=== PATIENT | female | born 1990 | race Caucasian/White ===

== ENCOUNTER 2020-10-09 07:36 | Inpatient (IN) ==
[2020-10-09] MEDS ORDERED: DINOPROSTONE 10 MG INSERT PV ONE (08:33)
[2020-10-09] MEDS ORDERED: OXYTOCIN 30 UNITS/500 ML BAG IV PRN (08:33)
--- NOTE | 2020-10-09 08:39 | History & Physical Report ---
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 then Allergies Allergy/AdvReac Type Severity Reaction Status Date / Time codeine AdvReac Unknown Verified 10/09/20 08:22 Home Medications Medication Instructions Recorded Confirmed Type prenat.vits,carlin,[id number] 1 tab PO DAILY 10/09/20 10/09/20 History [ Vitamin] Patient History Social History Smoking Status: Current every day smoker Do You Dip or Chew Tobacco: No; Tobacco Cessation Education Requested by Patient: No Hx Alcohol Use: No Hx Substance Use: No Preferred Language: Luxembourgish General Operations Manager Required: No Beliefs That Will Affect Care: None marital status: Single Current Living Situation: Spouse Other Information That Helps Us Care for You: No Feels Safe at Home: Yes Safety Concerns: Feels Safe At This Time Assistive Devices: None 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 No h/o STD's Review of Systems All systems reviewed & are unremarkable except as noted in HPI & below Physical Exam Constitutional: WD/WN, vitals as above well developed Gastrointestinal (Abdomen): normal bowel sounds, soft, nontender, no hepatosplenomegaly (gravid) Genitourinary: normal external appearance OB Exam Abdomen: + vertex Manual OB Exam: + cervical dilation 1 cm, + cervical effacement 40% and + station -2 OB Exam Monitor Tracing: + external uterine monitor used and + category I Results & Data ([facility]) Vital Signs (Past 12 Hours) Vital Signs Temp Pulse Resp BP 10/09/20 07:52 36.7 C 75 20 116/71 10/09/20 07:48 75 116/71
[2020-10-09] MEDS ORDERED: PENICILLIN G POTASSIUM 6 MU in DEXTROSE 5% 250 ML IV ONE (09:00)
[2020-10-09 09:06] LABS: Hematocrit (blood only) 32.8 % (37-47); Hemoglobin 10.9 g/dL (12.0-16.0); Mean Corpuscular Hemoglobin 28.7 pg (25-34); Mean Corpuscular Hgb Conc 33.2 g/dL (32-36); Mean Corpuscular Volume 86.3 fL (80-100); Mean Platelet Volume 10.6 fL (7.4-10.4); Platelet Count 149 K/uL (130-400); RDW Coefficient of Variation 14.3 % (11.5-14.5); RDW Standard Deviation 44.5 fL (36.4-46.3); White Blood Count 7.32 K/uL (4.8-10.8)
[2020-10-09] MEDS ORDERED: BUTORPHANOL TARTRATE 1 MG/ML VIAL IV PRN (09:17)
[2020-10-09] MEDS: LACTATED RINGER'S 1,000 ML IV PRN ×2 (17:50→19:57)
--- NOTE | 2020-10-09 17:58 | Obstetrical Progress Note ---
Date of Service October 09, 2020 Assessment & Plan Admission and Anticipated Discharge Date Admission Date: October 09, 2020 Subjective Patient has been feeling ctxs more often and more painful for the last 2 hours Desires pain meds VE; 1-2 cm/ 70%/ -2, posterior, cervidil is in place FHR 115-120 baseline, categ I [place] ctxs q 2-3 min Plan to monitor closely and Stadol for pain Start IV PCN for GBS Results & Data ([facility]) Vital Signs (Past 12 Hours) Vital Signs Temp Pulse Resp BP 10/09/20 16:23 36.6 C 61 20 113/63 10/09/20 12:05 36.6 C 63 20 125/61 10/09/20 07:52 36.7 C 75 20 116/71 10/09/20 07:48 75 116/71
[2020-10-09] MEDS ORDERED: TERBUTALINE SULFATE 1 MG/ML VIAL ONE (19:16)
[2020-10-09] MEDS ORDERED: TERBUTALINE SULFATE 1 MG/ML VIAL SQ ONE (19:19)
[2020-10-09] MEDS ORDERED: NALOXONE HCL 0.4 MG/1 ML VIAL/CARP IV PRN ×2 (19:25→22:51)
[2020-10-09] MEDS ORDERED: ePHEDrine sulfate 50 MG/ML AMP IV PRN ×2 (19:25→22:51)
[2020-10-09] MEDS ORDERED: NALOXONE HCL 1 MG in SODIUM CHLORIDE 0.9% 1000ML 1,000 ML IV PRN ×2 (19:25→22:51)
[2020-10-09] MEDS ORDERED: ONDANSETRON INJ 2 MG/ML 2 ML VIAL IV PRN ×2 (19:25→22:51)
[2020-10-09] MEDS ORDERED: diphenhydrAMINE 50 MG/ML VIAL IV PRN ×2 (19:25→22:51)
--- NOTE | 2020-10-09 19:26 | Anesthesiology Consultation ---
Date of Service October 09, 2020 Assessment & Plan ASA ASA2 Proposed Anesthesia Anesthesia Type: Labor Epidural Risk / Benefits Reviewed With: PT / POA / Parent / Guardian, Accepts Plan and Informed Consent Obtained History Height/Weight Height: 5 ft 4 in Weight: 82.554 kg Allergies Allergy/AdvReac Type Severity Reaction Status Date / Time codeine AdvReac Unknown Verified 10/09/20 08:22 Medications Home Medications Medication Instructions Recorded Confirmed Last Taken prenat.vits,carlin,[id number] 1 tab PO DAILY 10/09/20 10/09/20 Unknown [ Vitamin] Active Medications Generic Name Dose Route Start Last Admin Trade Name Freq PRN Reason Stop Dose Admin Butorphanol Tartrate 1 mg 10/09/20 09:17 10/09/20 18:00 Butorphanol Tartrate 1 Mg/Ml Vial IV 11/08/20 09:16 1 mg Q2HWA PRN Administration Pain Lactated Ringer's 1,000 mls @ 125 mls/hr 10/09/20 08:33 10/09/20 19:11 Lr IV 10/11/20 08:32 999 mls/hr .Q8H PRN Infusion L&D Protocol Protocol Past Medical History Medical History (Updated 10/09/20 @ 09:20 by Merle Wadsworth RN) Cholecystectomy planned Exercise / Class Metabolic Activity II 4-5 Yardwork/Stairs/Walk up hill Past Surgical History Surgical History (Updated 10/09/20 @ 09:20 by Merle Wadsworth RN) [place] teeth extracted Past Anesthesia History No Hx of Anesthesia Complications and No Family Hx of Anesthesia Complications History of PONV No Hx of PONV and No Hx of Motion Sickness Social History Smoking Status: Current every day smoker tobacco type: cigarettes Do You Dip or Chew Tobacco: No Hx Alcohol Use: No Hx Substance Use: No substance use type: does not use Review of Systems denies fever/cough/ colds/ chest pain/ SOB/ SANJUANA denies SANJUANA Physical Exam Vital Signs Last Vital Signs Temp 36.5 C 10/09/20 18:59 Pulse 76 10/09/20 19:54 Resp 18 10/09/20 19:50 BP 109/58 L 10/09/20 19:53 Pulse Ox 99 10/09/20 19:54 ENMT Mouth: no TMJ abnormality and no dentition abnormality Thyromental Distance: > or= 3.5 Finger Breadths Mallampati Class: II Neck neck extension not limited Respiratory normal respiratory effort; no respiratory distress Auscultation: lungs clear to auscultation bilaterally Cardiovascular Rate/Rhythm: regular rate and regular rhythm Neurologic moves all extremities Psychiatric Orientation: alert and oriented x 3 Testing Laboratory Results 10/09/20 08:57
--- NOTE | 2020-10-09 19:26 | Obstetrical Progress Note ---
Date of Service October 09, 2020 Assessment & Plan Admission and Anticipated Discharge Date Admission Date: October 09, 2020 Subjective Patient has been extremely painful, pain is 10/10 Crtxs q 1 min Cervido,was removed at 18:30 Stadol did not help at all FHR categ I VE was very painful plan for IVF bolus, 1 dose of terbutaline and epidural for pain Continue to monitor Results & Data ([facility]) Vital Signs (Past 12 Hours) Vital Signs Temp Pulse Resp BP 10/09/20 19:05 74 130/69 10/09/20 18:59 36.5 C 18 10/09/20 16:23 36.6 C 61 20 113/63 10/09/20 12:05 36.6 C 63 20 125/61 10/09/20 07:52 36.7 C 75 20 116/71 10/09/20 07:48 75 116/71
[2020-10-09] MEDS ORDERED: SODIUM CHLORIDE 0.9% INJ 10 ML VIAL ONE (19:28)
[2020-10-09] MEDS ORDERED: ePHEDrine sulfate 50 MG/ML AMP ONE (19:28)
[2020-10-09] MEDS ORDERED: BUPIVACAINE 0.25% 30 ML VIAL ONE ×2 (19:29→21:37)
[2020-10-09] MEDS ORDERED: fentaNYL citrate 100 MCG/2 ML VIAL ONE ×2 (19:29→21:37)
[2020-10-09] MEDS ORDERED: fentaNYL 2MCG/ML ROPIVACAINE 1.25MG/ML 100 ML BAG EPI ONE (19:30)
[2020-10-09] MEDS: fentaNYL 2MCG/ML ROPIVACAINE 1.25MG/ML 100 ML BAG EPI PRN (20:50)
[2020-10-09] MEDS: PENICILLIN G POTASSIUM 3 MU in DEXTROSE 5% 100 ML IV PRN (22:12)
[2020-10-09] MEDS ORDERED: fentaNYL 2MCG/ML ROPIVACAINE 1.25MG/ML 100 ML BAG EPI PRN (22:51)
[2020-10-09] MEDS ORDERED: fentaNYL citrate 100 MCG/2 ML VIAL INJ STA (22:52)
--- NOTE | 2020-10-09 23:17 | Obstetrical Progress Note ---
Date of Service October 09, 2020 Assessment & Plan Admission and Anticipated Discharge Date Admission Date: October 09, 2020 Subjective Patient received epidural for the second time. FHR had dez categ I with baseline of 115-120's Had a prolonged deceleration to 80-90's VE; 4/ 90%/ -2, bulging bag, blood show+, AROM'ed and abundant clear fluid was obtained FHR recovered to 120's on lateral position with IVF bolus and Nasal O2 Hollingsworth is placed SCD's on Continue to monitor closely Results & Data ([facility]) Vital Signs (Past 12 Hours) Vital Signs Temp Pulse Resp BP Pulse Ox 10/09/20 23:13 63 100/56 L 10/09/20 23:09 61 107/63 100 10/09/20 23:07 55 L 114/68 10/09/20 23:04 66 99 10/09/20 23:01 63 112/55 L 10/09/20 22:59 67 97 10/09/20 22:55 64 106/54 L 10/09/20 22:54 69 97 10/09/20 22:52 67 108/61 10/09/20 22:49 66 98 10/09/20 22:48 67 101/67 10/09/20 22:44 70 98 10/09/20 22:41 67 115/61 10/09/20 22:39 65 99 10/09/20 22:34 74 98 10/09/20 22:32 71 111/61 10/09/20 22:30 70 112/60 10/09/20 22:29 72 99 10/09/20 22:24 81 98 10/09/20 22:20 71 118/56 L 10/09/20 22:19 78 98 10/09/20 22:14 77 99 10/09/20 22:09 68 96 10/09/20 22:04 69 96 10/09/20 22:01 71 112/58 L 10/09/20 21:59 69 98 10/09/20 21:54 76 98 10/09/20 21:50 71 119/56 L 10/09/20 21:49 75 96 10/09/20 21:48 69 115/74 10/09/20 21:46 74 108/66 10/09/20 21:44 72 98 10/09/20 21:41 66 115/65 10/09/20 21:39 70 98 10/09/20 21:34 70 99 10/09/20 21:31 65 108/69 10/09/20 21:30 70 111/66 93 10/09/20 21:29 66 97 10/09/20 21:24 74 97 10/09/20 21:21 88 141/89 H 10/09/20 21:19 76 100 10/09/20 21:18 20 10/09/20 21:14 73 99 10/09/20 21:13 65 92 10/09/20 21:12 73 127/60 10/09/20 21:09 66 98 10/09/20 21:04 67 98 10/09/20 21:01 74 113/64 10/09/20 20:59 70 98 10/09/20 20:54 76 99 10/09/20 20:52 73 130/75 10/09/20 20:49 73 99 10/09/20 20:44 71 99 10/09/20 20:41 64 150/59 H 92 10/09/20 20:39 80 98 10/09/20 20:34 73 99 10/09/20 20:31 65 92 10/09/20 20:30 66 114/62 10/09/20 20:29 70 99 10/09/20 20:24 72 99 10/09/20 20:20 68 18 116/61 10/09/20 20:19 69 99 10/09/20 20:14 70 100 10/09/20 20:09 70 99 10/09/20 20:08 71 18 118/67 10/09/20 20:05 69 120/68 10/09/20 20:04 71 99 10/09/20 20:02 70 117/62 10/09/20 19:59 69 110/57 L 97 10/09/20 19:56 75 111/58 L 10/09/20 19:54 76 99 10/09/20 19:53 73 109/58 L 10/09/20 19:50 71 18 116/58 L 10/09/20 19:49 74 99 10/09/20 19:47 75 116/56 L 10/09/20 19:44 72 129/73 99 10/09/20 19:38 82 99 10/09/20 19:05 74 130/69 10/09/20 18:59 36.5 C 18 10/09/20 16:23 36.6 C 61 20 113/63 10/09/20 12:05 36.6 C 63 20 125/61
--- NOTE | 2020-10-09 23:49 | Anesthesia Procedure Note ---
Date of Service October 09, 2020 Anesthesia Post Epidural Note Vital Signs Vital Signs: Temp Pulse Resp BP Pulse Ox 36.7 C 66 20 114/59 L 99 10/09/20 23:30 10/09/20 23:49 10/09/20 23:30 10/09/20 23:46 10/09/20 23:49 Pain Intensity Bilateral Lower Abdomen: Pain Intensity: 0 Notes Mental Status: alert / awake / arousable and participated in evaluation Nausea / Vomiting: adequately controlled Pain: adequately controlled Airway Patency, RR, SpO2: stable & adequate BP & HR: stable & adequate Hydration State: stable & adequate Neuraxial Anesthesia: was administered Anesthetic Complications: no major complications apparent Epidural: Removed without complications and With tip intact Notes: Original epidural pulled and immediately replaced. See anesthetic record.
[2020-10-10] MEDS: PENICILLIN G POTASSIUM 3 MU in DEXTROSE 5% 100 ML IV PRN (02:06)
[2020-10-10] MEDS: fentaNYL 2MCG/ML ROPIVACAINE 1.25MG/ML 100 ML BAG EPI PRN (02:21)
--- NOTE | 2020-10-10 03:05 | Obstetrical Progress Note ---
Date of Service October 10, 2020 Assessment & Plan Admission and Anticipated Discharge Date Admission Date: October 09, 2020 Subjective Patient is reevaluated VE; 5/ 70%/ -3, still has VB more than bloody show FHR 120's, moderate variability, recurrent variable and late decels, categ II Due to ongoing VB and categ II strip, remote from delivery recommended Csection understands the risks and signed an informed consent. All questions were answered. Results & Data ([facility]) Vital Signs (Past 12 Hours) Vital Signs Temp Pulse Resp BP Pulse Ox 10/10/20 02:59 74 96 10/10/20 02:54 66 97 10/10/20 02:49 64 96 10/10/20 02:47 67 113/65 10/10/20 02:44 67 95 10/10/20 02:39 76 97 10/10/20 02:34 65 97 10/10/20 02:31 67 125/61 10/10/20 02:30 18 10/10/20 02:29 68 97 10/10/20 02:24 60 96 10/10/20 02:20 64 111/62 94 10/10/20 02:19 81 97 10/10/20 02:16 83 92/54 L 10/10/20 02:14 68 96 10/10/20 02:09 71 94 10/10/20 02:08 72 94 10/10/20 02:04 71 94 10/10/20 02:02 72 101/60 93 10/10/20 02:00 20 10/10/20 01:59 76 93 10/10/20 01:56 67 94 10/10/20 01:54 75 92 10/10/20 01:49 67 92 10/10/20 01:48 75 116/59 L 90 10/10/20 01:44 74 92 10/10/20 01:39 80 91 10/10/20 01:34 73 91 10/10/20 01:31 73 94/51 L 89 L 10/10/20 01:30 18 10/10/20 01:29 73 91 10/10/20 01:24 77 91 10/10/20 01:20 36.9 C 10/10/20 01:19 72 92 10/10/20 01:16 72 105/55 L 91 10/10/20 01:14 72 92 10/10/20 01:09 72 93 10/10/20 01:05 73 94 10/10/20 01:04 73 93 10/10/20 01:02 70 113/65 10/10/20 01:00 67 16 94 10/10/20 00:59 74 95 10/10/20 00:55 60 94 10/10/20 00:54 61 96 10/10/20 00:49 62 97 10/10/20 00:47 92 H 100/66 10/10/20 00:44 65 98 10/10/20 00:39 69 97 10/10/20 00:34 62 97 10/10/20 00:31 67 105/57 L 10/10/20 00:30 18 10/10/20 00:29 68 96 10/10/20 00:24 63 97 10/10/20 00:19 65 96 10/10/20 00:18 65 107/59 L 10/10/20 00:14 64 96 10/10/20 00:09 67 97 10/10/20 00:04 83 97 10/10/20 00:01 68 120/56 L 10/10/20 00:00 20 10/09/20 23:59 74 98 10/09/20 23:54 68 99 10/09/20 23:49 66 99 10/09/20 23:46 67 114/59 L 10/09/20 23:44 68 98 10/09/20 23:39 67 99 10/09/20 23:38 78 129/62 10/09/20 23:34 68 99 10/09/20 23:30 36.7 C 61 20 93/58 L 10/09/20 23:29 63 100 10/09/20 23:27 63 97/59 L 10/09/20 23:24 69 99/55 L 100 10/09/20 23:21 65 97/52 L 10/09/20 23:19 66 100/52 L 99 10/09/20 23:15 64 97/61 L 10/09/20 23:14 63 100 10/09/20 23:13 63 100/56 L 10/09/20 23:09 61 107/63 100 10/09/20 23:07 55 L 114/68 10/09/20 23:04 66 99 10/09/20 23:01 63 112/55 L 04/26/21 22:59 67 97 10/09/20 22:55 64 106/54 L 10/09/20 22:54 69 97 10/09/20 22:52 67 108/61 10/09/20 22:49 66 98 10/09/20 22:48 67 101/67 10/09/20 22:44 70 98 10/09/20 22:41 67 115/61 10/09/20 22:39 65 99 10/09/20 22:34 74 98 10/09/20 22:32 71 111/61 10/09/20 22:30 70 112/60 10/09/20 22:29 72 99 10/09/20 22:24 81 98 10/09/20 22:20 71 118/56 L 10/09/20 22:19 78 98 10/09/20 22:14 77 99 10/09/20 22:09 68 96 10/09/20 22:04 69 96 10/09/20 22:01 71 112/58 L 10/09/20 21:59 69 98 10/09/20 21:54 76 98 10/09/20 21:50 71 119/56 L 10/09/20 21:49 75 96 10/09/20 21:48 69 115/74 10/09/20 21:46 74 108/66 10/09/20 21:44 72 98 10/09/20 21:41 66 115/65 10/09/20 21:39 70 98 10/09/20 21:34 70 99 10/09/20 21:31 65 108/69 10/09/20 21:30 70 111/66 93 10/09/20 21:29 66 97 10/09/20 21:24 74 97 10/09/20 21:21 88 141/89 H 10/09/20 21:19 76 100 10/09/20 21:18 20 10/09/20 21:14 73 99 10/09/20 21:13 65 92 10/09/20 21:12 73 127/60 10/09/20 21:09 66 98 10/09/20 21:04 67 98 10/09/20 21:01 74 113/64 10/09/20 20:59 70 98 10/09/20 20:54 76 99 10/09/20 20:52 73 130/75 10/09/20 20:49 73 99 10/09/20 20:44 71 99 10/09/20 20:41 64 150/59 H 92 10/09/20 20:39 80 98 10/09/20 20:34 73 99 10/09/20 20:31 65 92 10/09/20 20:30 66 114/62 10/09/20 20:29 70 99 10/09/20 20:24 72 99 10/09/20 20:20 68 18 116/61 10/09/20 20:19 69 99 10/09/20 20:14 70 100 10/09/20 20:09 70 99 10/09/20 20:08 71 18 118/67 10/09/20 20:05 69 120/68 10/09/20 20:04 71 99 10/09/20 20:02 70 117/62 10/09/20 19:59 69 110/57 L 97 10/09/20 19:56 75 111/58 L 10/09/20 19:54 76 99 10/09/20 19:53 73 109/58 L 10/09/20 19:50 71 18 116/58 L 10/09/20 19:49 74 99 10/09/20 19:47 75 116/56 L 10/09/20 19:44 72 129/73 99 10/09/20 19:38 82 99 10/09/20 19:05 74 130/69 10/09/20 18:59 36.5 C 18 10/09/20 16:23 36.6 C 61 20 113/63
[2020-10-10] MEDS ORDERED: LACTATED RINGER'S 1,000 ML IV SCH ×2 (03:15→04:45)
[2020-10-10] MEDS ORDERED: MoRPHine SULFATE PF 1 MG/ML 10 ML AMP/VIAL ONE (03:24)
[2020-10-10] MEDS ORDERED: fentaNYL citrate 100 MCG/2 ML VIAL ONE (03:24)
[2020-10-10] MEDS ORDERED: OXYTOCIN 10 UNITS/ML VIAL ONE (03:24)
[2020-10-10] MEDS ORDERED: CITRIC ACID/SODIUM CITRATE 15 ML UDC PO ONE (03:27)
[2020-10-10] MEDS ORDERED: AZITHROMYCIN 500 MG in DEXTROSE 5% 250 ML IV ONE (03:30)
[2020-10-10] MEDS ORDERED: ceFAZolin 2000MG 2,000 MG/15 ML SYR IV ONE (03:30)
[2020-10-10 03:34] LABS: Basophils # (auto) 0.01 K/uL (0-0.2); Basophils % (auto) 0.1 %; Hematocrit (blood only) 32.7 % (37-47); Hemoglobin 11.1 g/dL (12.0-16.0); Immature Granulocytes # (auto) 0.04 K/uL (0.00-0.02); Immature Granulocytes % (auto) 0.3 %; Lymphocytes # (auto) 1.47 K/uL (1.2-3.4); Lymphocytes % (auto) 12.4 %; Mean Corpuscular Hemoglobin 28.8 pg (25-34); Mean Corpuscular Volume 84.9 fL (80-100); Mean Platelet Volume 10.3 fL (7.4-10.4); Monocytes % (auto) 4.2 %; Neutrophils # (auto) 9.88 K/uL (1.4-6.5); Platelet Count 153 K/uL (130-400); RDW Coefficient of Variation 14.4 % (11.5-14.5); RDW Standard Deviation 44.3 fL (36.4-46.3); Red Blood Count 3.85 M/uL (4.2-5.4)
[2020-10-10 03:37] LABS: Mean Corpuscular Hgb Conc 33.9 g/dL (32-36)
[2020-10-10] MEDS ORDERED: METHYLERGONOVINE MALEATE 0.2 MG/ML AMP ONE (04:00)
[2020-10-10 04:02] LABS: Fibrinogen 397 mg/dl (184-400); INR 0.9 (0.9-1.1); Partial Thromboplastin Time 25.1 Seconds (21.0-31.0); Prothrombin Time 9.3 Seconds (9.0-12.0)
[2020-10-10] MEDS ORDERED: ONDANSETRON INJ 2 MG/ML 2 ML VIAL ONE (04:06)
[2020-10-10] MEDS ORDERED: PHENYLEPHRINE 100MCG/ML 5ML SYR ONE (04:06)
[2020-10-10] MEDS ORDERED: ePHEDrine sulfate 50 MG/ML AMP ONE (04:06)
[2020-10-10] MEDS ORDERED: PROPOFOL IV EMULSION 10 MG/ML 20 ML VIAL IV ONE (04:24)
[2020-10-10] MEDS ORDERED: DIPHTHERIA/TETANUS/PERTUSSIS 0.5 ML SYR/VIAL IM ONE (04:44)
[2020-10-10] MEDS ORDERED: MEASLES, MUMPS & RUBELLA VIRUS VIAL SQ ONE (04:44)
[2020-10-10] MEDS ORDERED: HYDROCORTISONE ACETATE 25 MG SUPP PR PRN (04:44)
[2020-10-10] MEDS ORDERED: SUPERCREAM 0.870% 15 GM JAR EXT PRN (04:44)
[2020-10-10] MEDS ORDERED: SENNA 8.6 MG TAB PO PRN (04:44)
[2020-10-10] MEDS ORDERED: MAGNESIUM HYDROXIDE SUSP 30 ML UDC PO PRN (04:44)
[2020-10-10] MEDS ORDERED: BENZOCAINE 20% AER SPR 82.5 GM CAN EXT PRN (04:44)
[2020-10-10] MEDS ORDERED: oxyCODONE/ACETAMINOPHEN 5mg/325mg TAB PO PRN (04:44)
--- NOTE | 2020-10-10 04:44 | Post Operative Brief Note ---
Immediate Post Op Note v1 Date of Surgery October 10, 2020 Pre & Post Diagnosis Operation Date: 10/10/20 03:00 Pre-Op Diagnosis: 1. Clinical Abruption 2. Category II tracing 3. Remote from delivery Post-Op Diagnosis: 1. Same 2. Delivery of live male child at 0355 (in Main OR 3) I identified the patient and participated in the time-out.: Yes Procedure Operation Date: 10/10/20 03:00 Actual Procedures p Section in LD - Carlotta Harry MD Surgeon Carlotta Harry MD Draughtsman Fabby Mckeon RN Estimated Blood Loss 800 Findings Consistent with Post-Op Diagnosis Drains Hollingsworth Catheter Anesthesia Type Labor Epidural Complications none Disposition Accompanied Patient To Recovery: Yes Disposition: L&D
[2020-10-10] MEDS ORDERED: NALOXONE HCL 0.4 MG/1 ML VIAL/CARP IV PRN ×2 (05:02→19:23)
[2020-10-10] MEDS ORDERED: MoRPHine SULFATE PF 1 MG/ML 10 ML AMP/VIAL INT SPINAL ONE (05:02)
[2020-10-10] MEDS ORDERED: diphenhydrAMINE 50 MG/ML VIAL IV PRN ×3 (05:02→23:02)
[2020-10-10] MEDS ORDERED: NALOXONE HCL 1 MG in SODIUM CHLORIDE 0.9% 1000ML 1,000 ML IV PRN ×2 (05:02→19:23)
[2020-10-10] MEDS ORDERED: NALOXONE HCL 0.08 MG in SYRINGE 1.8 ML IV PRN ×2 (05:02→19:23)
[2020-10-10] MEDS ORDERED: PROMETHAZINE HCL 25 MG in SODIUM CHLORIDE 0.9% 50 ML IV PRN ×2 (05:02→23:02)
[2020-10-10] MEDS ORDERED: ONDANSETRON INJ 2 MG/ML 2 ML VIAL IV PRN ×2 (05:02→23:02)
[2020-10-10] MEDS ORDERED: HYDROmorphone INJ 0.5 MG/0.5 ML SYR IV PRN (05:02)
[2020-10-10] MEDS ORDERED: LACTATED RINGER'S 500 ML IV PRN ×2 (05:02→19:23)
[2020-10-10] MEDS: OXYTOCIN 20 UNITS in LACTATED RINGER'S 1,000 ML IV SCH ×2 (05:10→13:36)
[2020-10-10] MEDS ORDERED: DC INTRASPINAL MORPHINE SCH (05:15)
[2020-10-10] MEDS ORDERED: SODIUM CHLORIDE 0.9% 1000ML 1,000 ML IV SCH ×2 (05:15→19:30)
[2020-10-10] MEDS ORDERED: NO NARCOTICS OR SEDATIVES SCH (05:15)
--- NOTE | 2020-10-10 05:17 | Communication Note ---
Date of Service: October 10, 2020 pt had an arrhythmia on 3 lead ekg sinus arrythmia vs possible mobitz type 1. 12 lead confirmed sinus arrhythmia. no further action needed
--- NOTE | 2020-10-10 05:39 | Anesthesiology Progress Note ---
Date of Service October 10, 2020 Anesthesia Post Procedure Vital Signs Vital Signs: Temp Pulse Resp BP Pulse Ox 10/10/20 05:34 68 97 10/10/20 05:33 71 93 10/10/20 05:29 60 95 10/10/20 05:25 68 146/65 H 10/10/20 05:24 72 99 10/10/20 05:19 62 100 10/10/20 05:15 66 18 150/72 H 10/10/20 05:14 59 L 96 10/10/20 05:09 66 97 10/10/20 05:05 74 145/70 H 10/10/20 05:04 67 99 10/10/20 04:59 64 99 10/10/20 04:55 68 135/75 10/10/20 04:54 60 100 10/10/20 03:33 68 115/76 10/10/20 03:29 92 H 18 99 10/10/20 03:24 66 100 10/10/20 03:19 73 100 10/10/20 03:16 63 121/68 10/10/20 03:14 63 100 10/10/20 03:09 67 100 10/10/20 03:04 64 100 10/10/20 03:03 69 121/68 10/10/20 03:00 20 10/10/20 02:59 74 96 10/10/20 02:54 66 97 10/10/20 02:49 64 96 10/10/20 02:47 67 113/65 10/10/20 02:44 67 95 10/10/20 02:39 76 97 10/10/20 02:34 65 97 10/10/20 02:31 67 125/61 10/10/20 02:30 18 10/10/20 02:29 68 97 10/10/20 02:24 60 96 10/10/20 02:20 64 111/62 94 10/10/20 02:19 81 97 10/10/20 02:16 83 92/54 L 10/10/20 02:14 68 96 10/10/20 02:09 71 94 10/10/20 02:08 72 94 10/10/20 02:04 71 94 10/10/20 02:02 72 101/60 93 10/10/20 02:00 20 10/10/20 01:59 76 93 10/10/20 01:56 67 94 10/10/20 01:54 75 92 10/10/20 01:49 67 92 10/10/20 01:48 75 116/59 L 90 10/10/20 01:44 74 92 10/10/20 01:39 80 91 10/10/20 01:34 73 91 10/10/20 01:31 73 94/51 L 89 L 10/10/20 01:30 18 10/10/20 01:29 73 91 10/10/20 01:24 77 91 10/10/20 01:20 36.9 C 10/10/20 01:19 72 92 10/10/20 01:16 72 105/55 L 91 10/10/20 01:14 72 92 10/10/20 01:09 72 93 10/10/20 01:05 73 94 10/10/20 01:04 73 93 10/10/20 01:02 70 113/65 10/10/20 01:00 67 16 94 10/10/20 00:59 74 95 10/10/20 00:55 60 94 10/10/20 00:54 61 96 10/10/20 00:49 62 97 10/10/20 00:47 92 H 100/66 10/10/20 00:44 65 98 10/10/20 00:39 69 97 10/10/20 00:34 62 97 10/10/20 00:31 67 105/57 L 10/10/20 00:30 18 10/10/20 00:29 68 96 10/10/20 00:24 63 97 10/10/20 00:19 65 96 10/10/20 00:18 65 107/59 L 10/10/20 00:14 64 96 10/10/20 00:09 67 97 10/10/20 00:04 83 97 10/10/20 00:01 68 120/56 L 10/10/20 00:00 20 10/09/20 23:59 74 98 10/09/20 23:54 68 99 10/09/20 23:49 66 99 10/09/20 23:46 67 114/59 L 10/09/20 23:44 68 98 10/09/20 23:39 67 99 10/09/20 23:38 78 129/62 10/09/20 23:34 68 99 10/09/20 23:30 36.7 C 61 20 93/58 L 10/09/20 23:29 63 100 10/09/20 23:27 63 97/59 L 10/09/20 23:24 69 99/55 L 100 10/09/20 23:21 65 97/52 L 10/09/20 23:19 66 100/52 L 99 10/09/20 23:15 64 97/61 L 10/09/20 23:14 63 100 10/09/20 23:13 63 100/56 L 10/09/20 23:09 61 107/63 100 10/09/20 23:07 55 L 114/68 10/09/20 23:04 66 99 10/09/20 23:01 63 112/55 L 10/09/20 22:59 67 97 10/09/20 22:55 64 106/54 L 10/09/20 22:54 69 97 10/09/20 22:52 67 108/61 10/09/20 22:49 66 98 10/09/20 22:48 67 101/67 10/09/20 22:44 70 98 10/09/20 22:41 67 115/61 10/09/20 22:39 65 99 10/09/20 22:34 74 98 10/09/20 22:32 71 111/61 10/09/20 22:30 70 112/60 10/09/20 22:29 72 99 10/09/20 22:24 81 98 10/09/20 22:20 71 118/56 L 10/09/20 22:19 78 98 10/09/20 22:14 77 99 10/09/20 22:09 68 96 10/09/20 22:04 69 96 10/09/20 22:01 71 112/58 L 10/09/20 21:59 69 98 10/09/20 21:54 76 98 10/09/20 21:50 71 119/56 L 10/09/20 21:49 75 96 10/09/20 21:48 69 115/74 10/09/20 21:46 74 108/66 10/09/20 21:44 72 98 10/09/20 21:41 66 115/65 10/09/20 21:39 70 98 10/09/20 21:34 70 99 10/09/20 21:31 65 108/69 10/09/20 21:30 70 111/66 93 10/09/20 21:29 66 97 10/09/20 21:24 74 97 10/09/20 21:21 88 141/89 H 10/09/20 21:19 76 100 10/09/20 21:18 20 10/09/20 21:14 73 99 10/09/20 21:13 65 92 10/09/20 21:12 73 127/60 10/09/20 21:09 66 98 10/09/20 21:04 67 98 10/09/20 21:01 74 113/64 10/09/20 20:59 70 98 10/09/20 20:54 76 99 10/09/20 20:52 73 130/75 10/09/20 20:49 73 99 10/09/20 20:44 71 99 10/09/20 20:41 64 150/59 H 92 10/09/20 20:39 80 98 10/09/20 20:34 73 99 10/09/20 20:31 65 92 10/09/20 20:30 66 114/62 10/09/20 20:29 70 99 10/09/20 20:24 72 99 10/09/20 20:20 68 18 116/61 10/09/20 20:19 69 99 10/09/20 20:14 70 100 10/09/20 20:09 70 99 10/09/20 20:08 71 18 118/67 10/09/20 20:05 69 120/68 10/09/20 20:04 71 99 10/09/20 20:02 70 117/62 10/09/20 19:59 69 110/57 L 97 10/09/20 19:56 75 111/58 L 10/09/20 19:54 76 99 10/09/20 19:53 73 109/58 L 10/09/20 19:50 71 18 116/58 L 10/09/20 19:49 74 99 10/09/20 19:47 75 116/56 L 10/09/20 19:44 72 129/73 99 10/09/20 19:38 82 99 10/09/20 19:05 74 130/69 10/09/20 18:59 36.5 C 18 10/09/20 16:23 36.6 C 61 20 113/63 10/09/20 12:05 36.6 C 63 20 125/61 10/09/20 07:52 36.7 C 75 20 116/71 10/09/20 07:48 75 116/71 Pain Intensity Bilateral Lower Abdomen: Pain Intensity: 0 Transfer of Care Handoff Completed per policy Notes Mental Status: alert / awake / arousable and participated in evaluation Patient Amnestic to Procedure: Yes Nausea / Vomiting: adequately controlled Pain: adequately controlled Airway Patency, RR, SpO2: stable & adequate BP & HR: stable & adequate Hydration State: stable & adequate Anesthetic Complications: no major complications apparent and Pt Satisfied with anesthetic care
--- NOTE | 2020-10-10 06:51 | Operative Report (OR) ---
DATE OF OPERATION: 10/10/2020 PREOPERATIVE DIAGNOSES: The patient is a 30-year-old G1, P0 at 40 weeks and 4 days of gestation, admitted for induction of labor for postdates on 10/09/2020, clinical abruption with ongoing vaginal bleeding, category 2 heart rate tracing and remote from delivery. POSTOPERATIVE DIAGNOSES: The patient is a 30-year-old G1, P0 at 40 weeks and 4 days of gestation, admitted for induction of labor for postdates on 10/09/2020, clinical abruption with ongoing vaginal bleeding, category 2 heart rate tracing and remote from delivery. PROCEDURE: Primary low transverse with Pfannenstiel skin incision. SURGEON: Carlotta Harry MD CLOTH WEAVER: Fabby Mckeon RN ESTIMATED BLOOD LOSS: 800 mL. DRAINS: Hollingsworth catheter drained 400 mL of clear urine. ANESTHESIA: Labor epidural. ANESTHESIOLOGIST: Dr. Rider. COMPLICATIONS: None. FINDINGS: Baby was a viable male delivered at 3:55 a.m. in cephalic presentation, Apgars were 8/9, weight was 3750 grams. MATERNAL FINDINGS: Normal uterus, fallopian tubes and ovaries. DESCRIPTION OF PROCEDURE: The patient was taken to the operating room where epidural anesthesia was given and was found to be adequate. She was placed in dorsal supine position with a leftward tilt. She was prepared and draped in usual sterile fashion. Pfannenstiel skin incision was made and carried through to the underlying layer of fascia with the Bovie. Fascia was incised in the midline and incision was extended laterally with the help of York scissors. Lower aspect of the fascial incision was then grasped with 2 Gus clamps, elevated. Underlying rectus muscles were dissected off sharply with York scissors. The upper aspect of the fascial incision was then grasped with 2 Gus clamps, elevated. Underlying rectus muscles were dissected off sharply with York scissors. Rectus muscles were in the midline. Peritoneum was entered bluntly with fingers. Peritoneal incision was extended superiorly and inferiorly with good visualization of the bladder. Bladder blade was inserted. Vesicouterine peritoneum was grasped with pickups, entered sharply with Metzenbaum scissors. Bladder flap was created digitally and bladder blade was reinserted. Lower uterine segment was incised in transverse fashion. Incision was extended laterally with the help of fingers. Membranes were ruptured, bloody fluid was obtained. Baby's head was delivered without difficulty. Shoulders were delivered with minimal traction. Mouth and nose were suctioned. Baby was vigorously crying and moving. Cord was clamped x2 and cut at 1 minute delay. Baby was handed off to the waiting pediatric team. Placenta was delivered manually as intact and complete. Uterus was exteriorized, cleared of all clots and debris. Uterine incision was repaired with 0 Vicryl in a running locked fashion. A second imbricating layer was placed with 0 Vicryl in a running locked fashion. There was oozing close to the left corner (medial site). It was controlled with [id number] stitches. Then cul-de-sac was irrigated with warm normal saline and suctioned. Uterus was returned to the abdomen. The pelvis was irrigated with warm normal saline and suctioned. More hemostatic sutures were placed in the lower segment with 0 Vicryl. Excellent hemostasis was achieved. Then parietal peritoneum was reapproximated with 3-0 Vicryl in a running fashion and it was continued on the muscular layer in a continuous fashion. Then the rectus fascia was reapproximated with 0 Vicryl in a running fashion. Subcuticular fat tissue was brought together with 3-0 Vicryl in a running fashion. Skin was closed with 4-0 Monocryl in a subcuticular fashion. The patient tolerated the procedure well. Sponge, lap, needle count was correct x3. She was given 2 grams of cefazolin and 500 mg of azithromycin before surgery. She was taken to recovery room in stable condition. No complications happened and I was present during whole procedure. I attest to the content of the Intraoperative Record and any orders documented therein. Any exceptions are noted below. MTDD
[2020-10-10] MEDS: SIMETHICONE 80 MG CHEW PO SCH ×4 (08:10→21:26)
[2020-10-10] MEDS: DOCUSATE SODIUM 100 MG CAP PO SCH ×2 (08:10→21:25)
[2020-10-10] MEDS: METHYLERGONOVINE MALEATE 0.2 MG TAB PO SCH ×4 (08:10→21:25)
--- NOTE | 2020-10-10 12:54 | Electrocardiogram Report ---
Test Reason : Blood Pressure : / mmHG Vent. Rate : 060 BPM Atrial Rate : 060 BPM P-R Int : 176 ms QRS Dur : 084 ms QT Int : 416 ms P-R-T Axes : 000 092 061 degrees QTc Int : 416 ms Poor data quality, interpretation may be adversely affected Sinus rhythm with marked sinus arrhythmia Rightward axis Borderline ECG No previous ECGs available Confirmed by Jose Ramon Antonio ([id number]) on 10/10/2020 12:54:02 PM Referred By: Carlotta Harry Confirmed By:Jose Ramon Antonio
[2020-10-10] MEDS ORDERED: ACETAMINOPHEN 1,000 MG/100 ML VIAL IV PRN (19:16)
[2020-10-10] MEDS ORDERED: MEPERIDINE HCL 25 MG/ML CARP/VIAL IV PRN (19:23)
[2020-10-10] MEDS ORDERED: KETOROLAC 30 MG/ML VIAL IV PRN (19:23)
[2020-10-10] MEDS ORDERED: ePHEDrine sulfate 50 MG/ML AMP IV PRN (19:23)
[2020-10-10] MEDS ORDERED: diphenhydrAMINE Capsule 25 MG CAP PO PRN (23:02)
[2020-10-10] MEDS ORDERED: MEPERIDINE HCL 50 MG/ML CARP IV PRN (23:02)
[2020-10-11] MEDS: METHYLERGONOVINE MALEATE 0.2 MG TAB PO SCH (01:30)
[2020-10-11] MEDS: oxyCODONE/ACETAMINOPHEN 5mg/325mg TAB PO PRN ×4 (06:37→22:35)
[2020-10-11] MEDS: IBUPROFEN 600 MG TAB PO PRN ×4 (06:38→22:35)
[2020-10-11 06:42] LABS: Basophils # (auto) 0.01 K/uL (0-0.2); Basophils % (auto) 0.1 %; Eosinophils # (auto) 0.02 K/uL (0-0.5); Eosinophils % (auto) 0.1 %; Hematocrit (blood only) 31.2 % (37-47); Hemoglobin 10.5 g/dL (12.0-16.0); Immature Granulocytes # (auto) 0.05 K/uL (0.00-0.02); Immature Granulocytes % (auto) 0.3 %; Lymphocytes # (auto) 1.13 K/uL (1.2-3.4); Lymphocytes % (auto) 7.9 %; Mean Corpuscular Hemoglobin 28.7 pg (25-34); Mean Corpuscular Hgb Conc 33.7 g/dL (32-36); Mean Corpuscular Volume 85.2 fL (80-100); Mean Platelet Volume 10.8 fL (7.4-10.4); Monocytes # (auto) 0.89 K/uL (0.11-0.59); Monocytes % (auto) 6.2 %; Neutrophils # (auto) 12.26 K/uL (1.4-6.5); Neutrophils % (auto) 85.4 %; Platelet Count 168 K/uL (130-400); RDW Coefficient of Variation 14.6 % (11.5-14.5); RDW Standard Deviation 45.4 fL (36.4-46.3); Red Blood Count 3.66 M/uL (4.2-5.4); White Blood Count 14.36 K/uL (4.8-10.8)
[2020-10-11] MEDS: DOCUSATE SODIUM 100 MG CAP PO SCH ×2 (08:57→20:56)
[2020-10-11] MEDS: SIMETHICONE 80 MG CHEW PO SCH ×4 (08:57→20:56)
[2020-10-11] MEDS: FERROUS SULFATE 325 MG TAB PO SCH (08:58)
[2020-10-11] MEDS: PRENATAL VITAMIN 1 TAB PO SCH (08:58)
--- NOTE | 2020-10-11 09:00 | Surgery Progress Note ---
Date of Service October 11, 2020 Assessment & Plan Admission and Anticipated Discharge Date Admission Date: October 09, 2020 Subjective POD#1 doing well tolerating diet passing gas out of bed Physical Exam Constitutional: WD/WN, vitals as above well developed and comfortable abdomen soft and non-tender incision c/d/i no edema neg Sylvia's continue to advance care Results & Data ([facility]) Vital Signs (Past 12 Hours) Vital Signs Temp Pulse Resp BP Pulse Ox 10/11/20 07:40 36.8 C 72 18 109/66 92 10/10/20 23:25 36.6 C 67 18 121/79 96 10/10/20 23:00 18 96 10/10/20 22:00 18 97 10/10/20 21:00 18 95 Laboratory Results 10/09/20 10/09/20 10/09/20 08:57 Unknown Unknown WBC 7.32 RBC 3.80 L Hgb 10.9 L Hct 32.8 L MCV 86.3 MCH 28.7 MCHC 33.2 RDW Std Deviation 44.5 RDW Coeff of Kel 14.3 Plt Count 149 MPV 10.6 H Immature Gran % (Auto) Neut % (Auto) Lymph % (Auto) [place] % (Auto) Eos % (Auto) Baso % (Auto) Neut # (Auto) Lymph # (Auto) [place] # (Auto) Eos # (Auto) Baso # (Auto) Immature Gran # (Auto) PT INR APTT PTT Ratio Fibrinogen COVID-19 Eval Order Covid19 [facility] SARS-CoV-2, RNA, NAAT NEGATIVE 10/10/20 10/10/20 10/11/20 03:24 03:24 06:10 WBC 11.90 H 14.36 H RBC 3.85 L 3.66 L Hgb 11.1 L 10.5 L Hct 32.7 L 31.2 L MCV 84.9 85.2 MCH 28.8 28.7 MCHC 33.9 33.7 RDW Std Deviation 44.3 45.4 RDW Coeff of Kel 14.4 14.6 H Plt Count 153 168 MPV 10.3 10.8 H Immature Gran % (Auto) 0.3 0.3 Neut % (Auto) 83.0 85.4 Lymph % (Auto) 12.4 7.9 [place] % (Auto) 4.2 6.2 Eos % (Auto) 0.0 0.1 Baso % (Auto) 0.1 0.1 Neut # (Auto) 9.88 H 12.26 H Lymph # (Auto) 1.47 1.13 L [place] # (Auto) 0.50 0.89 H Eos # (Auto) 0.00 0.02 Baso # (Auto) 0.01 0.01 Immature Gran # (Auto) 0.04 H 0.05 H PT 9.3 INR 0.9 APTT 25.1 PTT Ratio 1.0 Fibrinogen 397 COVID-19 Eval Order SARS-CoV-2, RNA, NAAT
[2020-10-11] MEDS ORDERED: valACYclovir HCL 500 MG TABLET PO SCH (14:44)
[2020-10-11] MEDS ORDERED: bisacodyL 5 MG TABEC PO SCH (20:00)
[2020-10-12] MEDS ORDERED: bisacodyL 10 MG SUPP PR PRN (04:44)
[2020-10-12 06:31] LABS: Hematocrit (blood only) 28.1 % (37-47); Hemoglobin 9.3 g/dL (12.0-16.0)
--- NOTE | 2020-10-12 07:58 | Obstetrical Progress Note ---
Date of Service October 12, 2020 Assessment & Plan Admission and Anticipated Discharge Date Admission Date: October 09, 2020 Subjective Patient is seen and examined. She feels well, no complaints. Desires d/c today Pain is under control with oral meds. Ambulating without dizziness Voiding without difficulty Tolerating regular diet with out N&V Flatus + BM neg Bleeding is minimal No fever/ chills/ CP/ SOB/ N&V/ Leg pain Breast feeding without problems Vital Signs Temp Pulse Resp BP BP Pulse Ox 10/12/20 07:24 36.6 C 75 16 121/80 98 10/11/20 23:15 36.4 C L 71 20 104/66 96 10/11/20 19:25 36.5 C 82 18 108/69 95 10/11/20 16:05 36.6 C 73 18 108/71 95 10/11/20 12:00 36.8 C 88 18 119/79 96 Lab Results 10/09/20 10/09/20 10/09/20 Range/Units 08:57 Unknown Unknown WBC 7.32 (4.8-10.8) K/uL RBC 3.80 L (4.2-5.4) M/uL Hgb 10.9 L (12.0-16.0) g/dL Hct 32.8 L (37-47) % MCV 86.3 (80-100) fL MCH 28.7 (25-34) pg MCHC 33.2 (32-36) g/dL RDW Std Deviation 44.5 (36.4-46.3) fL RDW Coeff of Kel 14.3 (11.5-14.5) % Plt Count 149 (130-400) K/uL MPV 10.6 H (7.4-10.4) fL Immature Gran % (Auto) % Neut % (Auto) % Lymph % (Auto) % [place] % (Auto) % Eos % (Auto) % Baso % (Auto) % Neut # (Auto) (1.4-6.5) K/uL Lymph # (Auto) (1.2-3.4) K/uL [place] # (Auto) (0.11-0.59) K/uL Eos # (Auto) (0-0.5) K/uL Baso # (Auto) (0-0.2) K/uL Immature Gran # (Auto) (0.00-0.02) K/uL PT (9.0-12.0) Seconds INR (0.9-1.1) APTT (21.0-31.0) Seconds PTT Ratio Fibrinogen (184-400) mg/dl COVID-19 Eval Order Covid19 [facility] SARS-CoV-2, RNA, NAAT NEGATIVE (NEGATIVE) 10/10/20 10/10/20 10/11/20 Range/Units 03:24 03:24 06:10 WBC 11.90 H 14.36 H (4.8-10.8) K/uL RBC 3.85 L 3.66 L (4.2-5.4) M/uL Hgb 11.1 L 10.5 L (12.0-16.0) g/dL Hct 32.7 L 31.2 L (37-47) % MCV 84.9 85.2 (80-100) fL MCH 28.8 28.7 (25-34) pg MCHC 33.9 33.7 (32-36) g/dL RDW Std Deviation 44.3 45.4 (36.4-46.3) fL RDW Coeff of Kel 14.4 14.6 H (11.5-14.5) % Plt Count 153 168 (130-400) K/uL MPV 10.3 10.8 H (7.4-10.4) fL Immature Gran % (Auto) 0.3 0.3 % Neut % (Auto) 83.0 85.4 % Lymph % (Auto) 12.4 7.9 % [place] % (Auto) 4.2 6.2 % Eos % (Auto) 0.0 0.1 % Baso % (Auto) 0.1 0.1 % Neut # (Auto) 9.88 H 12.26 H (1.4-6.5) K/uL Lymph # (Auto) 1.47 1.13 L (1.2-3.4) K/uL [place] # (Auto) 0.50 0.89 H (0.11-0.59) K/uL Eos # (Auto) 0.00 0.02 (0-0.5) K/uL Baso # (Auto) 0.01 0.01 (0-0.2) K/uL Immature Gran # (Auto) 0.04 H 0.05 H (0.00-0.02) K/uL PT 9.3 (9.0-12.0) Seconds INR 0.9 (0.9-1.1) APTT 25.1 (21.0-31.0) Seconds PTT Ratio 1.0 Fibrinogen 397 (184-400) mg/dl COVID-19 Eval Order SARS-CoV-2, RNA, NAAT (NEGATIVE) 10/12/20 Range/Units 06:13 WBC (4.8-10.8) K/uL RBC (4.2-5.4) M/uL Hgb 9.3 L (12.0-16.0) g/dL Hct 28.1 L (37-47) % MCV (80-100) fL MCH (25-34) pg MCHC (32-36) g/dL RDW Std Deviation (36.4-46.3) fL RDW Coeff of Kel (11.5-14.5) % Plt Count (130-400) K/uL MPV (7.4-10.4) fL Immature Gran % (Auto) % Neut % (Auto) % Lymph % (Auto) % [place] % (Auto) % Eos % (Auto) % Baso % (Auto) % Neut # (Auto) (1.4-6.5) K/uL Lymph # (Auto) (1.2-3.4) K/uL [place] # (Auto) (0.11-0.59) K/uL Eos # (Auto) (0-0.5) K/uL Baso # (Auto) (0-0.2) K/uL Immature Gran # (Auto) (0.00-0.02) K/uL PT (9.0-12.0) Seconds INR (0.9-1.1) APTT (21.0-31.0) Seconds PTT Ratio Fibrinogen (184-400) mg/dl COVID-19 Eval Order SARS-CoV-2, RNA, NAAT (NEGATIVE) PE: General: Alert, orientedx3, NAD CVS: S1S2 RRR Lungs; CTAB Abd: soft, NT, ND, BS+, fundus firm, below Umbilicus Incision: Clean, dry, intact Perineum intact, Lochia rubra minimal Ext; NT, no edema AP: 30 yo s/p C Section, pod# 2 VSS Afebrile doing well Continue routine postop care Encourage ambulation, PO intake All questions were answered D/C home , f/u in office Results & Data ([facility]) Vital Signs (Past 12 Hours) Vital Signs Temp Pulse Resp BP BP Pulse Ox 10/12/20 07:24 36.6 C 75 16 121/80 98 10/11/20 23:15 36.4 C L 71 20 104/66 96
[2020-10-12] MEDS: oxyCODONE/ACETAMINOPHEN 5mg/325mg TAB PO PRN (08:19)
[2020-10-12] MEDS: SIMETHICONE 80 MG CHEW PO SCH (08:19)
[2020-10-12] MEDS: FERROUS SULFATE 325 MG TAB PO SCH (08:19)
[2020-10-12] MEDS: PRENATAL VITAMIN 1 TAB PO SCH (08:19)
[2020-10-12] MEDS: DOCUSATE SODIUM 100 MG CAP PO SCH (08:19)
[2020-10-12] MEDS: IBUPROFEN 600 MG TAB PO PRN (08:20)
--- NOTE | 2020-10-17 09:21 | Discharge Summary (DS) ---
DETAILS OF ADMISSION: The patient is a 30-year-old G1, P0 at 40 weeks and 2 days of gestation. She was scheduled for induction of labor. Her vital signs were stable. GBS was positive. heart rate was reassuring. Her cervix was unfavorable. She was placed Cervidil for cervical ripening. She became painful in the afternoon. She received Stadol for pain. Her cervix was 1-2 cm, 70%, -2. In the evening, her pain got worse and she had regular contractions. Cervidil was removed at 1830. Stadol, was not helping for pain. She was given one dose of terbutaline for hyperstimulation and epidural for pain and in evening at 11, her pain was under control. She had prolonged deceleration to 80s-90s and with recovery. Her cervix was 4, 19, -2, ruptured and abundant clear fluid was obtained. She was also having bloody show during exam. She started to have invariable decelerations after that and then started more bleeding. Cervix was unchanged. heart rate was category 2 and she was removed from delivery, decision was made to proceed with primary . She delivered a viable male at 3:55 a.m. Apgars were 8/9. Her surgery was uncomplicated. On postop day #1, the patient was doing well. Vital signs stable, afebrile. Urine output was adequate. Physical exam was unremarkable. Incision was clean, dry and intact. Her postop H and H was 10.5/31.2. On postop day #2, the patient was doing well. Vital signs stable, afebrile, ambulating, tolerating regular diet, passing gas, without difficulty. Bleeding was minimal. She desired to be discharged on postop day #2. H and H was 9.23/28.1. The patient was discharged on postoperative day #2. Instructions were written, when to call, prescriptions were written for pain. She is to be seen in office in a week for incision check.
== END 2020-10-12 10:50 | disposition home or self-care (01) | DRG 788 ==
LOC: 4S1 07:36 → 4S2 10-10 12:00